=== PATIENT | male | born 1985 | race Two or more races ===

== ENCOUNTER 2020-12-07 15:36 | Emergency (ER) | payer OTHER ==
[~2020-12-07] VITALS: Ht 165.1 cm; Wt 80.0 kg
[2020-12-07 15:40] VITALS: BP 130/84
[2020-12-07] MEDS ORDERED: ERYTHROMYCIN OPHTH 0.5%, 1GM LEFTEYE ONE (16:00)
--- NOTE | 2020-12-07 16:09 | NUR ---
Pt sitting in chair, NADN. 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 Redness noted, pt states pain and tearing "all morning."
== END 2020-12-07 16:32 | disposition home or self-care (01) ==
LOC: ED 16:19
DX: S00.212A Abrasion of left eyelid and periocular area, initial encounter (principal); H10.32 Unspecified acute conjunctivitis, left eye; X58.XXXA Exposure to other specified factors, initial encounter; Y93.89 Activity, other specified; Y92.89 Other specified places as the place of occurrence of the external cause; Y99.8 Other external cause status
CPT/HCPCS: 99283